=== PATIENT | female | born 2000 | race Caucasian/White ===

== ENCOUNTER 2020-08-04 18:20 | Inpatient (IN) | payer OTHER ==
[2020-08-04] MEDS ORDERED: OXYTOCIN/0.9 % SODIUM CHLORIDE 30 UNIT/500 ML RTUINJ IV PRN (18:24)
[2020-08-04] MEDS ORDERED: DINOPROSTONE 10 MG VAGINAL INSERT.SR PV ONE (18:24)
[2020-08-04] MEDS ORDERED: MAG HYDROX/AL HYDROX/SIMETH SUSP 30 ML UDCUP PO PRN (18:24)
[2020-08-04] MEDS ORDERED: RINGERS SOLUTION,LACTATED 1,000 ML IV PRN (18:24)
[2020-08-04] MEDS ORDERED: RINGERS SOLUTION,LACTATED 300 ML IV ONE (18:24)
[2020-08-04] MEDS ORDERED: ZOLPIDEM TARTRATE 5 MG TABLET PO PRN (18:24)
[2020-08-04] MEDS ORDERED: ACETAMINOPHEN 325 MG TABLET PO PRN (18:24)
[2020-08-04] MEDS ORDERED: OXYTOCIN/0.9 % SODIUM CHLORIDE 30 UNIT/500 ML RTUINJ ONE (18:56)
[2020-08-04] MEDS ORDERED: OXYTOCIN 10 UNIT/ML VIAL ONE (18:56)
[2020-08-04] MEDS ORDERED: DINOPROSTONE 10 MG VAGINAL INSERT.SR ONE ×2 (18:56→19:42)
[2020-08-04] MEDS ORDERED: MISOPROSTOL 0.2 MG TABLET ONE (18:56)
[2020-08-04] MEDS ORDERED: LIDOCAINE 1% INJ-PF (10 MG/ML) 30 ML SDV ONE (18:56)
[2020-08-04 20:25] LABS: APPEARANCE,URINE CLEAR; BILIRUBIN,URINE NEGATIVE (NEGATIVE); COLOR,URINE YELLOW; GLUCOSE, URINE NEGATIVE (NEGATIVE); KETONES,URINE NEGATIVE (NEGATIVE); LEUKOCYTE ESTERASE,URINE NEGATIVE (NEGATIVE); NITRITE,URINE NEGATIVE (NEGATIVE); PROTEIN,URINE NEGATIVE (NEGATIVE); URINE SPECIFIC GRAVITY 1.008; UROBILINOGEN,URINE NEGATIVE mg/dL (<2.0)
[2020-08-04 20:28] LABS: ABSOLUTE EOSINOPHILS # (AUTO) 0.1 10^3/uL (0.0-0.6); ABSOLUTE LYMPHOCYTES (AUTO) 1.6 10^3/uL (0.5-4.7); ABSOLUTE MONOCYTES (AUTO) 0.8 10^3/uL (0.1-1.4); ABSOLUTE NEUT (AUTO) 9.3 10^3/uL (1.7-8.2); BASOPHILS % (AUTO) 0.2 % (0-2); EOSINOPHILS % (AUTO) 0.4 % (0-6); HEMOGLOBIN 11.6 g/dL (12.0-15.5); LYMPHOCYTES % (AUTO) 13.9 % (13-45); MEAN CORPUSCULAR HEMOGLOBIN 33.8 pg (27.0-33.4); MEAN CORPUSCULAR HGB CONC 35.1 g/dL (32.0-36.0); MEAN CORPUSCULAR VOLUME 96 fl (80-97); MONOCYTES % (AUTO) 6.7 % (3-13); PLATELET COUNT 265 10^3/uL (150-450); RED BLOOD COUNT 3.43 10^6/uL (3.72-5.28); RED CELL DISTRIBUTION WIDTH 12.3 % (11.5-14.0); SEGMENTED NEUTROPHILS % (AUTO) 78.8 % (42-78); TOTAL CELLS COUNTED % (AUTO) 100 %; WHITE BLOOD COUNT 11.8 10^3/uL (4.0-10.5)
[2020-08-04 20:41] LABS: URINE AMPHETAMINES SCREEN NEGATIVE; URINE BARBITURATES SCREEN NEGATIVE; URINE BENZODIAZEPINES SCREEN NEGATIVE; URINE COCAINE SCREEN NEGATIVE; URINE MARIJUANA (THC) SCREEN NEGATIVE; URINE METHADONE SCREEN NEGATIVE; URINE PHENCYCLIDINE SCREEN NEGATIVE
[2020-08-04] MEDS ORDERED: ZOLPIDEM TARTRATE 5 MG TABLET ONE (21:21)
--- NOTE | 2020-08-05 01:23 | Admission Physical ---
Datetime Report Generated by CPN: 08/05/2020 01:22 CURRENT ADMISSION Chief Complaint: Scheduled Induction of Labor Indication for Induction: IUGR Admit Impression : Term, Intrauterine ; Induction of Labor Admit Impression- Other: 10% Admit Plan: Admit to Unit; Initiate Labor Induction Protocol ALLERGIES Medication Allergies: No Medication Allergies: No Known Allergies (08/04/2020) Latex: No Latex Allergies OBSTETRICAL HISTORY EDC: 08/10/2020 00:00 : 1 Para: 0 Term: 0 : 0 SAB: 0 IAB: 0 Ectopic: 0 Cesareans: 0 VBACs: 0 Multiple Births: 0 Gestational Diabetes: No Rh Sensitization: No Incompetent Cervix: No FREYA: No Infertility: No ART Treatment: No Uterine Anomaly: No IUGR: No Hx Previous C/S: No Macrosomia: No Hx Loss/Stillborn: No PIH: No Hx : No Placenta Previa/Abruption: No Depression/PP Depression: No PTL/PROM: No Post Hemorrhage: No Obstetrical History Comments: G1- current; IUGR SEE RECORDS Alcohol: No Marijuana : No Cocaine: No Other Illicit Drugs: No Cigarettes: Never Smoker. [id number] MEDICAL HISTORY Diabetes: No Blood Transfusion: No Pulmonary Disease (Asthma, TB): No Breast Disease: No Hypertension: No Contract Mail Carrier Surgery: No Heart Disease: No Hosp/Surgery: No Autoimmune Disorder: No Anesthetic Complications: No Kidney Disease: No Abnormal Pap Smear: No Neuro/Epilepsy: No Psychiatric Disorders: No Other Medical Diseases: No Hepatitis/Liver Disease: No Significant Family History: No Varicosities/Phlebitis: No Trauma/Violence : No Thyroid Dysfunction: No Medical History Comments: anemia INFECTIOUS HISTORY Gonorrhea: No Genital Herpes: No Chlamydia: No Tuberculosis: No Syphilis: No Hepatitis: No HIV/AIDS Exposure: No Rash or Viral Illness: No HPV: No PHYSICAL EXAM General: Normal HEENT: Normal Neurologic: Normal Thyroid: Normal Heart: Normal Lungs: Normal Breast: Normal Back: Normal Abdomen: Normal Genitourinary Exam: Normal Extremities: Normal DTRs: Normal Pelvic Type: Adequate Vital Signs: Reviewed VAGINAL EXAM Dilatation: 1 Effacement: 25 Station: -2 MEMBRANES Pooling: Negative Membranes: Intact FETUS A EGA: 39.2 Monitoring: External US FHR- Baseline: 120 Variability: Moderate 6-25bpm Accelerations: 15X15 FHR Category: Category I Estimated Weight (gm): 3200 Presentation: Vertex PLANS FOR LABOR AND DELIVERY Labor and Delivery: None Pain Management: Natural Feeding Preference: Both Circumcision: N/A INFORMED CONSENT Signature: with User ID: [email or web address]
--- NOTE | 2020-08-05 09:29 | L&D Progress Notes ---
PROGRESS NOTES Datetime Report Generated by CPN: 08/05/2020 09:29 PROGRESS NOTE Impression: Reassuring Heart Rate Procedures: Sterile Vag Exam Procedures- Other: Suze's cathater placed Plan: Continue Present Management; Induction Vital Signs : Reviewed; Within Normal Limits Comment: at 39.2 weeks here for IOL d/t IUGR. Pt had Cervidil in place overnight. Doing well, no complaints, remains comfortable. GBS negative. VE 11/27/-1, vtx, midline and soft cervix. Suze's cathater placed w/ 80 ml NS fluid placed in each bulb. Plan to start Pitocin if contractions remain irregular. Emiliano MAY is Dr Peter today. VAGINAL EXAM Dilatation: 1 Effacement: 25 Station: -2 LAST VAGINAL EXAM-NURSING Nursing Exam Dilitation: 1.0 Nursing Exam Effacement: 50 Nursing Exam Station: -2 MEMBRANES Pooling: Negative Membranes: Intact FETUS A FHR - Baseline: 140 Monitoring: External US Variability: Moderate 6-25bpm Accelerations: 15X15 Decelerations: None FHR Category: Category I : 39.2 Estimated Weight (gm): 3200 Presentation: Vertex SIGNATURE SIGNATURE: [id number] Assignment: Monica Peter MD Signature: with User ID: Shari : with User ID: Shari
--- NOTE | 2020-08-05 13:32 | L&D Progress Notes ---
PROGRESS NOTES Datetime Report Generated by CPN: 08/05/2020 13:32 PROGRESS NOTE Impression: Reassuring Heart Rate Procedures: Sterile Vag Exam Procedures- Other: Arciniega's cathater placed Plan: Continue Present Management; Induction Vital Signs : Reviewed; Within Normal Limits Comment: IOL for IUGR, Suze's cathater in place, Pitocin infusing at 6 mu/min, Pt doing well, states contractions are becoming stronger now. Attempting to labor naturally. Position changes encouraged. Plan to AROM once Arciniega's cathater is d/c'd. VAGINAL EXAM Dilatation: 1 Effacement: 25 Station: -2 LAST VAGINAL EXAM-NURSING Nursing Exam Dilitation: 1.0 Nursing Exam Effacement: 50 Nursing Exam Station: -2 Nursing Exam Contractions: Rosemarie sensitivity changed MEMBRANES Pooling: Negative Membranes: Intact FETUS A FHR - Baseline: 135 Monitoring: External US Variability: Moderate 6-25bpm Accelerations: 15X15 Decelerations: None FHR Category: Category I : 39.2 Estimated Weight (gm): 3200 Presentation: Vertex SIGNATURE SIGNATURE: [id number];[id number] Assignment: Monica Peter MD Signature: with User ID: Shari : with User ID: Shari
--- NOTE | 2020-08-05 16:58 | L&D Progress Notes ---
PROGRESS NOTES Datetime Report Generated by CPN: 08/05/2020 16:57 PROGRESS NOTE Impression: Reassuring Heart Rate Procedures: Artificial ROM; Sterile Vag Exam Procedures- Other: Arciniega's cathater removed Plan: Continue Present Management; Induction Vital Signs : Reviewed; Within Normal Limits Comment: Pitocin at 12 mu/min. Pt doing well through the contractions. Suze's cathater removed. VE /-1. AROM w/ blood tinged fluid noted. Postion changes encouraged. Will update Dr Peter on pts progress. Pt may have an epidural if she changes her mind and wants one. Anticipate VAGINAL EXAM Dilatation: 1 Effacement: 25 Station: -2 LAST VAGINAL EXAM-NURSING Nursing Exam Dilitation: 6.0 Nursing Exam Effacement: 70 Nursing Exam Station: -1 Nursing Exam Contractions: Rosemarie sensitivity changed MEMBRANES Pooling: Negative Membranes: Ruptured Amniotic Fluid Color: Bloody FETUS A FHR - Baseline: 135 Monitoring: External US Variability: Moderate 6-25bpm Accelerations: 15X15 Decelerations: None FHR Category: Category I : 39.2 Estimated Weight (gm): 3200 Presentation: Vertex SIGNATURE SIGNATURE: [id number];[id number] Assignment: Monica Peter MD Signature: with User ID: Shari : with User ID: Shari
[2020-08-05] MEDS ORDERED: NALBUPHINE HCL INJ 10 MG/1 ML AMPULE INJ ONE (17:00)
[2020-08-05] MEDS ORDERED: PROMETHAZINE HCL INJ 25 MG/1 ML VIAL IV ONE (17:00)
[2020-08-05] MEDS ORDERED: NALBUPHINE HCL INJ 10 MG/1 ML AMPULE ONE (17:40)
[2020-08-05] MEDS ORDERED: PROMETHAZINE HCL INJ 25 MG/1 ML VIAL ONE (17:40)
[2020-08-05] MEDS ORDERED: PSEUDOEPHEDRINE HCL 30 MG TABLET PO PRN (20:25)
[2020-08-05] MEDS ORDERED: DIBUCAINE 1% OINTMENT 28 GM TP PRN (20:25)
[2020-08-05] MEDS ORDERED: DIPH/PERTUSS(ACELL)/TETANUS VAC/PF 0.5 ML SYR (>=10YO) IM PRN (20:25)
[2020-08-05] MEDS ORDERED: PROMETHAZINE HCL 25 MG TABLET PO PRN (20:25)
[2020-08-05] MEDS ORDERED: OXYTOCIN/0.9 % SODIUM CHLORIDE 30 UNIT/500 ML RTUINJ IV PRN (20:25)
[2020-08-05] MEDS ORDERED: ACETAMINOPHEN 650 MG SUPP.RECT PR PRN (20:25)
[2020-08-05] MEDS ORDERED: MEASLES,MUMPS&RUBELLA VACC/PF 0.5 ML VIAL SUBCUT PRN (20:25)
[2020-08-05] MEDS ORDERED: BENZOCAINE/MENTHOL AEROSOL SPRAY 56 ML TOP PRN (20:25)
[2020-08-05] MEDS ORDERED: GLYCERIN/WITCH HAZEL LEAF 1 EACH MED..WIPE TP PRN (20:25)
[2020-08-05] MEDS ORDERED: ACETAMINOPHEN WITH CODEINE #3 TABLET PO PRN ×2 (20:25)
[2020-08-05] MEDS ORDERED: DIPHENHYDRAMINE HCL 25 MG CAPSULE PO PRN (20:25)
[2020-08-05] MEDS ORDERED: MAGNESIUM HYDROXIDE SUSP 30 ML UDCUP PO PRN (20:25)
[2020-08-05] MEDS ORDERED: NA PHOS,M-B/NA PHOS,DI-BA (ADULT) 133 ML ENEMA PR PRN (20:25)
[2020-08-05] MEDS ORDERED: PROMETHAZINE HCL INJ 25 MG/1 ML VIAL IV PRN (20:25)
[2020-08-05] MEDS ORDERED: PROMETHAZINE HCL 25 MG SUPP.RECT PR PRN (20:25)
[2020-08-05] MEDS ORDERED: ZOLPIDEM TARTRATE 5 MG TABLET PO PRN (20:25)
--- NOTE | 2020-08-05 21:15 | Delivery Summary ---
Del Sum A-C Datetime Report Generated by CPN: 08/05/2020 21:15 DELIVERY PERSONNEL DELIVERY PERSONNEL: [id number] Delivery Doctor:: Monica Peter MD Labor and Delivery Nurse:: Yeni Fisher RNorthopedic rn Nurse:: CAROLE Reilly Nursery Nurse:: Smitha Oreilly RN Weaver [employer] Loom/MEDICAL RECRUITER: Leeann Green, ST MATERNAL INFORMATION Delivery Anesthesia: None Medications During Delivery: local for repair Medications After Delivery: Pitocin 30 Units in 500ml NS/D5W Estimated Blood Loss (ml): 150 Maternal Complications: None LABOR SUMMARY EDC: 08/10/2020 00:00 No. Babies in Womb: 1 Attempted: No Labor Anesthesia: None LABOR INFORMATION Reason for Induction: Intrauterine Growth Retardation Onset of Labor: 08/05/2020 16:50 Complete Dilatation: 08/05/2020 19:30 Cervical Ripening Agents: Cervidil Oxytocin: N/A Group B Beta Strep: Negative Antibiotics # of Doses: 0 Steroids Given: None Reason Steroids Not Administered: Not Applicable MEMBRANES Membranes Rupture Method: Artificial Rupture of Membranes: 08/05/2020 16:50 Length of Rupture (hr): 3.12 Amniotic Fluid Color: Bloody Amniotic Fluid Amount: Small Amniotic Fluid Odor: None STAGES OF LABOR Stage 1 hr: 2 Stage 1 min: 40 Stage 2 hr: 0 Stage 2 min: 27 Stage 3 hr: 0 Stage 3 min: 3 Total Time in Labor hr: 3 Total Time in Labor min: 10 VAGINAL DELIVERY Episiotomy: None Laceration #1: Perineal Laceration Extension #1: Second Degree Laceration #2: None Laceration Extension #2: N/A Laceration #3: None Laceration Extension #3: N/A Laceration Repair: Yes Laceration Repair Note: Repair in usual fashion with 3-0 chromic suture Sponge Count Correct: Vaginal Sweep Performed Sharps Count Correct: Yes BABY A INFORMATION Delivery Date/Time: 08/05/2020 19:57 Method of Delivery: Vaginal Nurse Controlled Delivery: No Born in Route : No : N/A Forceps: N/A Vacuum Extraction: N/A Shoulder Dystocia : No PRESENTATION/POSITION BABY A Presentation: Cephalic Cephalic Presentation: Vertex Vertex Position: Left Occipital Anterior Breech Presentation: N/A PLACENTA INFORMATION BABY A Placenta Delivery Time : 08/05/2020 20:00 Placenta Method of Delivery: Spontaneous Placenta Status: Delivered SCORES BABY A Heart Rate 1 min: >100 bpm Resp Effort 1 min: Good Cry Reflex Irritability 1 min: Cough or Sneeze or Pulls Away Muscle Tone 1 min: Active Motion Color 1 min: Body [place], Extremities Blue Resuscitation Effort 1 min: Tactile Stimulation SCORE 1 MIN: 9 Heart Rate 5 min: >100 bpm Resp Effort 5 min: Good Cry Reflex Irritability 5 min: Cough or Sneeze or Pulls Away Muscle Tone 5 min: Active Motion Color 5 min: Body [place], Extremities Blue SCORE 5 MIN: 9 INFANT INFORMATION BABY A Gestational Age at Delivery: 39.2 Gestational Status: Full Term- 39- 40.6 Weeks Infant Outcome : Liveborn Condition : Stable Infant Sex: Female IDENTIFICATION BABY A Verification Date/Time: 08/05/2020 20:08 ID Band Number: [id number] Mother's Name Verified: Yes Infant RN Verifying Infant: L Parlor [employer] CHEF/D Bellavance RN WEIGHT/LENGTH BABY A Infant Birthweight (gm): 2945 Weight (lb): 6 Weight (oz): 8 Length (in): 19.00 Length (cm): 48.26 CORD INFORMATION BABY A No. Cord Vessels: 3 Nuchal Cord : N/A Cord Blood Taken: Yes-For Eval (Mom's Blood Type - or O+) Suction: Mouth ASSESSMENT BABY A Complications: Multiple Variable Decels Physical Findings at Delivery: Within Normal Limits Respirations: Appears Normal Skin to Skin: Yes Foxer/ALS Called : No Infant Care By: Lanie Hughes RN Transferred To: Remains with Mother BABY B INFORMATION : N/A SIGNATURES Signature: with User ID: [email or web address]
--- NOTE | 2020-08-05 21:15 | Birth Certificate Data ---
Cert Data Datetime Report Generated by CPN: 08/05/2020 21:15 CERTIFICATE DATA 47a. Care: Yes (08/04/2020 18:23:Lesli Samuel RN) 47b. Date of First Visit: 02/22/2020 00:00 (08/04/2020 18:23:Vivian Hdz RN) 47c. Date of Last Visit: 07/26/2020 00:00 (08/04/2020 18:23:Vivian Hdz RN) 47d. Number of Visits: 11 (08/04/2020 18:23:Vivian Hdz RN) 48a. Number of Prev Live Births: 0 (08/04/2020 18:23:Vivian Hdz RN) 48b. Now Livin (08/04/2020 18:23:Vivian Hdz RN) 48c. Live Births Now : 0 (08/04/2020 18:23:QS system process) 48e. Losses: 0 (08/04/2020 18:23:Vivian Hdz RN) RISK FACTORS IN THIS 49a. Diabetes: No (08/04/2020 18:23:Lesli Samuel RN) 49b. Hypertension: No (08/04/2020 18:23:Lesli Samuel RN) 49c. Previous Births: 0 (08/04/2020 18:23:Haily Gonzalez RN) 49d. Stillborns: No (08/04/2020 18:23:Lesli Samuel RN) 49d. IUGR: Yes (08/04/2020 18:23:CAROLE Reilly) 49e. Infertility Treatment: No (08/04/2020 18:23:Lesli Samuel RN) 49f. Previous Cesareans: 0 (08/04/2020 18:23:Haily Gonzalez RN) Mother's Height 50b. Height Inches: 65 (08/04/2020 18:58:QS system process) Mother's Weight 51a. Pre- Weight (lbs): 146 (08/04/2020 18:23:Haily Gonzalez RN) 51b. Weight at Delivery (lbs): 167 (08/04/2020 18:58:QS system process) Infections Present/Treated 53a. Gonorrhea: No (08/04/2020 18:23:Lesli Samuel RN) Results this Hospital Visit : Negative (08/04/2020 18:23:Haily Gonzalez RN) 53b. Syphilis: No (08/04/2020 18:23:Lesli Samuel RN) Results this Hospital Visit: NONREACTIVE (08/04/2020 20:15:QS system process) 53c. Chlamydia: No (08/04/2020 18:23:Lesli Samuel RN) Results this Hospital Visit: Negative (08/04/2020 18:23:Haily Gonzalez RN) 53d. Hepatitis B: No (08/04/2020 18:23:Lesli Samuel RN) Results this Hospital Visit: Negative (08/04/2020 18:23:Haily Gonzalez RN) 53e. Hepatitis C: Negative (08/04/2020 18:23:CAROLE Reilly) 53h. Mother Tested for HBsAG: Yes (08/04/2020 18:23:Haily Gonzalez RN) 53i. Date Tested: 04/30/2020 00:00 (08/04/2020 18:23:Haily Gonzalez RN) 53j. Test Result: Negative (08/04/2020 18:23:Haily Gonzalez RN) Obstetric Procedures 54a, b, c. Obstetric Procedures: Ultrasound (08/04/2020 18:23:Mai Mejias RN) Cigarette Smoking Cigarette Smoking: Never Smoker. [id number] (08/04/2020 18:23:Lesli Samuel RN) 55a. 3 Months Before Preg - Ci (08/04/2020 18:23:Vivian Hdz RN) 55a. Packs: 0 (08/04/2020 18:23:Vivian Hdz RN) 55b. 1st Trimester of Preg- Ci (08/04/2020 18:23:Vivian Hdz RN) 55b. Packs: 0 (08/04/2020 18:23:Vivian Hdz RN) 55c. 2nd Trimester of Preg- Ci (08/04/2020 18:23:Vivian Hdz RN) 55c. Packs: 0 (08/04/2020 18:23:Vivian Hdz RN) 55d. 3rd Trimester of Preg- Ci (08/04/2020 18:23:Vivian Hdz RN) Onset of Labor 56a. PROM >12 Hrs: 3.12 (08/04/2020 18:23:QS system process) 56b. Precipitous Labor <3 Hrs: 3 (08/04/2020 18:23:QS system process) 56c. Prolonged Labor > 20 Hrs: 3 (08/04/2020 18:23:QS system process) 57a. Induction of Labor: N/A (08/04/2020 18:23:CAROLE Reilly) 57a. Induction of Labor: Cervidil (08/04/2020 19:52:Vivian Hdz RN) 57c. Non-Vertex Presentation A: Vertex (08/04/2020 18:23:CAROLE Reilly) 57d. Steroids - Lung Mat: None (08/04/2020 18:23:Monica Peter MD ([facility])) 57d. Steroids - Lung Mat: Not Applicable (08/04/2020 18:23:Monica Peter MD ([facility])) 57f. Mat [place] or Temp >100.4: 99.7 (08/04/2020 18:23:CAROLE Reilly) 57g. Moderate/Heavy Meconium: Bloody (08/05/2020 19:19:Janette Vela RN) 57i. Epidural/Spinal Anesthesia: None (08/04/2020 18:23:CAROLE Reilly) Method of Delivery 58a. Forceps - Unsuccessful A: N/A (08/04/2020 18:23:CAROLE Reilly) 58b. Vacuum - Unsuccessful A: N/A (08/04/2020 18:23:CAROLE Reilly) 58c. Presentation at 58c. Presentation at - A : Vertex (08/04/2020 18:23:Neida Bellavance, RNC) 58c. Presentation at - A : N/A (08/04/2020 18:23:Neida Bellavance, RNC) 58c. Presentation at - A : Cephalic (08/05/2020 19:42:Yeni Fisher RN) Final Route and Method of Del 58d. Baby A Route/Delivery: Vaginal (08/05/2020 19:57:Yeni Fisher RN) 58e. Trial of Labor Attempted: No (08/04/2020 18:23:Neida Bellavance, RNC) 58e. Trial of Labor Attempted A: N/A (08/04/2020 18:23:Neida Bellavance, RNC) 58e. Trial of Labor Attempted B: N/A (08/04/2020 18:23:Neida Bellavance, RNC) Maternal Morbidity 59b. 3rd or 4th Degree Lacs: Perineal (08/04/2020 18:23:Monica MD [place] ([facility])) Birthweight Baby A: 2945 (08/04/2020 18:23:Latoya Bowie RN) 60a. Pounds : 6 (08/04/2020 18:23:QS system process) 60b. Ounces: 8 (08/04/2020 18:23:QS system process) 61. GA at Delivery Baby A: 39.2 (08/04/2020 18:23:Neida Hughes [facility]) : Full Term- 39- 40.6 Weeks (08/04/2020 18:23:QS system process) 62a. 5 Minute Baby A: 9 (08/04/2020 18:23:QS system process)
[2020-08-05] MEDS ORDERED: IBUPROFEN 800 MG TABLET ONE (21:44)
[2020-08-05] MEDS: IBUPROFEN 800 MG TABLET PO SCH (21:56)
[2020-08-05] MEDS: FAMOTIDINE 20 MG TABLET PO SCH (23:21)
[2020-08-06] MEDS: IBUPROFEN 800 MG TABLET PO SCH ×3 (06:01→22:02)
[2020-08-06 06:29] LABS: HEMATOCRIT 32.5 % (36.0-47.0); HEMOGLOBIN 11.3 g/dL (12.0-15.5); MEAN CORPUSCULAR HEMOGLOBIN 33.4 pg (27.0-33.4); MEAN CORPUSCULAR HGB CONC 34.9 g/dL (32.0-36.0); MEAN CORPUSCULAR VOLUME 96 fl (80-97); PLATELET COUNT 251 10^3/uL (150-450); RED BLOOD COUNT 3.38 10^6/uL (3.72-5.28); RED CELL DISTRIBUTION WIDTH 12.2 % (11.5-14.0); WHITE BLOOD COUNT 19.3 10^3/uL (4.0-10.5)
[2020-08-06] MEDS: FAMOTIDINE 20 MG TABLET PO SCH ×2 (09:30→22:02)
[2020-08-06] MEDS: PRENATAL VITAMIN W DHA CAPSULE PO SCH (09:30)
[2020-08-06] MEDS: DOCUSATE SODIUM 100 MG CAPSULE PO SCH ×2 (09:30→17:27)
[2020-08-06] MEDS: SENNOSIDES/DOCUSATE 8.6-50 MG 1 EACH TABLET PO SCH (09:30)
[2020-08-06] MEDS: FERROUS SULFATE 325 MG TABLET PO SCH ×2 (09:30→17:27)
--- NOTE | 2020-08-06 11:24 | PDOC PROGRESS REPORT ---
Subjective-OB Progress Note for:: 08/06/20 Subjective: Pt doing well, no concerns. She reports light bleeding, reg diet and voiding w/o difficulty. Physical Exam (OB) Vital Signs: Temp Pulse Resp BP Pulse Ox 98.1 F 84 16 119/78 99 08/06/20 10:00 08/06/20 07:43 08/06/20 07:43 08/06/20 07:43 08/06/20 07:43 Intake & Output 08/05/20 08/06/20 08/07/20 06:59 06:59 06:59 Intake Total 900 340 Output Total 800 Balance 100 340 Weight 75.7 kg - PIH/Pre-Eclampsia Clonus: Negative Headache: Absent Epigastric Pain: No Visual Changes: No - Maternal Morbidity 59. Maternal Morbidity (serious complications experinced by the mother associated with labor and delivery: None of the above - Lochia Lochia Amount: Scant < 10 ml Lochia Color: Rubra/Red - Abdomen Description: Soft Hernia Present: No Fundal Description: Firm, Midline Fundal Height: u/u - u/2 Objective-Diagnostic Laboratory: 08/06/20 05:57 08/06/20 05:57 WBC 19.3 H RBC 3.38 L Hgb 11.3 L Hct 32.5 L MCV 96 MCH 33.4 MCHC 34.9 RDW 12.2 Plt Count 251 Assessment and Plan(PN) - Assessment and Plan (1) Encounter for induction of labor Is this a current diagnosis for this admission?: Yes (2) growth restriction Is this a current diagnosis for this admission?: Yes (3) Term delivered Is this a current diagnosis for this admission?: Yes (4) Second degree perineal laceration during delivery Is this a current diagnosis for this admission?: Yes (5) (normal spontaneous vaginal delivery) Is this a current diagnosis for this admission?: Yes - Time Spent with Patient Time with patient: Less than 15 minutes Medications reviewed and adjusted accordingly: Yes - Disposition Anticipated Discharge Disposition: Home, Self Care Anticipated Discharge Timeframe: within 24 hours
[2020-08-07] MEDS: IBUPROFEN 800 MG TABLET PO SCH (05:21)
[2020-08-07 07:47] VITALS: BP 114/78
[2020-08-07] MEDS: SENNOSIDES/DOCUSATE 8.6-50 MG 1 EACH TABLET PO SCH (09:33)
[2020-08-07] MEDS: FAMOTIDINE 20 MG TABLET PO SCH (09:33)
[2020-08-07] MEDS: DOCUSATE SODIUM 100 MG CAPSULE PO SCH (09:33)
[2020-08-07] MEDS: FERROUS SULFATE 325 MG TABLET PO SCH (09:33)
[2020-08-07] MEDS: PRENATAL VITAMIN W DHA CAPSULE PO SCH (09:33)
--- NOTE | 2020-08-07 12:18 | PDOC DISCHARGE SUMMARY ---
Impression - Admit/DC Date/PCP Admission Date/Primary Care Provider: 08/04/20 18:20 PAO WORRELL Discharge Date: 08/07/20 - Discharge Diagnosis (1) Encounter for induction of labor Is this a current diagnosis for this admission?: Yes (2) growth restriction Is this a current diagnosis for this admission?: Yes (3) (normal spontaneous vaginal delivery) Is this a current diagnosis for this admission?: Yes (4) Second degree perineal laceration during delivery Is this a current diagnosis for this admission?: Yes (5) Term delivered Is this a current diagnosis for this admission?: Yes - Assessment Summary: 20yo s/p ppd2- stable and ready for discharge, understands all warning s/s and reasons to rtc/[facility] prior to next scheduled visit. Pt asked questions and verbalized understanding - Additional Information Resuscitation Status: Full Code Discharge Diet: As Tolerated, Regular Discharge Activity: Activity As Tolerated, Balance Activity w/Rest, No Lifting Over 10 Pounds, No Lifting/Push/Pulling, Pelvic Rest, No tub bath, Walk Frequently Referrals: JULIANA EDDY PA [Primary Care Provider] - Prescriptions: Ibuprofen [Motrin 800 mg Tablet] 800 mg PO Q8HP PRN #20 tablet PRN Reason: For Pain Scale 1-3 Home Medications: Ascorbic Acid [Vitamin C] 1,000 mg PO DAILY 08/04/20 Ibuprofen [Motrin 800 mg Tablet] 800 mg PO Q8HP PRN #20 tablet 08/07/20 Hospital Course 59. Maternal Morbidity (serious complications experinced by the mother associated with labor and delivery: None of the above Results Laboratory Results: WBC 19.3 10^3/uL (4.0-10.5) H 08/06/20 05:57 RBC 3.38 10^6/uL (3.72-5.28) L 08/06/20 05:57 Hgb 11.3 g/dL (12.0-15.5) L 08/06/20 05:57 Hct 32.5 % (36.0-47.0) L 08/06/20 05:57 MCV 96 fl (80-97) 08/06/20 05:57 MCH 33.4 pg (27.0-33.4) 08/06/20 05:57 MCHC 34.9 g/dL (32.0-36.0) 08/06/20 05:57 RDW 12.2 % (11.5-14.0) 08/06/20 05:57 Plt Count 251 10^3/uL (150-450) 08/06/20 05:57 Lymph % (Auto) 13.9 % (13-45) 08/04/20 20:15 [place] % (Auto) 6.7 % (3-13) 08/04/20 20:15 Eos % (Auto) 0.4 % (0-6) 08/04/20 20:15 Baso % (Auto) 0.2 % (0-2) 08/04/20 20:15 Absolute Neuts (auto) 9.3 10^3/uL (1.7-8.2) H 08/04/20 20:15 Absolute Lymphs (auto) 1.6 10^3/uL (0.5-4.7) 08/04/20 20:15 Absolute Monos (auto) 0.8 10^3/uL (0.1-1.4) 08/04/20 20:15 Absolute Eos (auto) 0.1 10^3/uL (0.0-0.6) 08/04/20 20:15 Absolute Basos (auto) 0.0 10^3/uL (0.0-0.2) 08/04/20 20:15 Seg Neutrophils % 78.8 % (42-78) H 08/04/20 20:15 Urine Color YELLOW 08/04/20 18:40 Urine Appearance CLEAR 08/04/20 18:40 Urine pH 6.0 (5.0-9.0) 08/04/20 18:40 Ur Specific [place] 1.008 08/04/20 18:40 Urine Protein NEGATIVE mg/dL (NEGATIVE) 08/04/20 18:40 Urine Glucose (UA) NEGATIVE mg/dL (NEGATIVE) 08/04/20 18:40 Urine Ketones NEGATIVE mg/dL (NEGATIVE) 08/04/20 18:40 Urine Blood NEGATIVE (NEGATIVE) 08/04/20 18:40 Urine Nitrite NEGATIVE (NEGATIVE) 08/04/20 18:40 Urine Bilirubin NEGATIVE (NEGATIVE) 08/04/20 18:40 Urine Urobilinogen NEGATIVE mg/dL (<2.0) 08/04/20 18:40 Ur Leukocyte Esterase NEGATIVE (NEGATIVE) 08/04/20 18:40 Urine Ascorbic Acid NEGATIVE (NEGATIVE) 08/04/20 18:40 Urine Opiates Screen NEGATIVE 08/04/20 18:40 Urine Methadone Screen NEGATIVE 08/04/20 18:40 Ur Barbiturates Screen NEGATIVE 08/04/20 18:40 Ur Phencyclidine Scrn NEGATIVE 08/04/20 18:40 Ur Amphetamines Screen NEGATIVE 08/04/20 18:40 U Benzodiazepines Scrn NEGATIVE 08/04/20 18:40 Urine Cocaine Screen NEGATIVE 08/04/20 18:40 U Marijuana (THC) Screen NEGATIVE 08/04/20 18:40 RPR NONREACTIVE (NONREACTIVE) 08/04/20 20:15 Blood Type AB POSITIVE 08/04/20 20:15 Antibody Screen NEGATIVE 08/04/20 20:15
== END 2020-08-07 14:07 | disposition home or self-care (01) | DRG 807 ==
LOC: LR 18:20 → 2S 08-05 22:14
PROVIDERS: ADMIT Obstetrics & Gynecology; ATTEND Obstetrics & Gynecology
PROC: 10E0XZZ Delivery of Products of Conception, External Approach (ICD-10-PCS; principal; 2020-08-05)
PROC: 0KQM0ZZ Repair Perineum Muscle, Open Approach (ICD-10-PCS; 2020-08-05)
PROC: 10907ZC Drainage of Amniotic Fluid, Therapeutic from Products of Conception, Via Natural or Artificial Opening (ICD-10-PCS; 2020-08-05)
DX: O36.5930 Maternal care for other known or suspected poor fetal growth, third trimester, not applicable or unspecified (principal); Z37.0 Single live birth; O70.1 Second degree perineal laceration during delivery; Z03.818 Encounter for observation for suspected exposure to other biological agents ruled out; Z3A.39 39 weeks gestation of pregnancy
CPT/HCPCS: 36415; 80307; 81005; 85025; 85027; 86592; 86850; 86900; 86901; J2300; J2550; J2590; J3490